=== PATIENT | female | born 1955 | race Caucasian/White ===

== ENCOUNTER 2016-11-01 12:27 | Emergency (ER) | payer OTHER ==
[2016-11-01 12:38] VITALS: RESP 16; TEMP 98.2
--- NOTE | 2016-11-01 15:09 | EDPHY ---
HPI/HX/ROS/PE/MDM Narrative: CHIEF COMPLAINT: Left sided abdominal pain. HISTORY OF PRESENT ILLNESS: The patient is a 61-year-old female presenting with left sided abdominal pain that started 5 days ago. The patient first developed skin sensitivity to the left breast, abdomen, and back. No noticeable rash. Two days ago the pain worsened in severity, most prominently the left abdomen. She has associated nausea, no emesis. Her pain is worse with movement and increases in the evenings. She has been taking Advil for pain with no relief. She notes decreased appetite. Denies fever, vomiting, diarrhea, urinary complaints, hematuria, shortness of breath or chest pain. REVIEW OF SYSTEMS: Aside from elements discussed in the HPI, a comprehensive 10-point review of systems was reviewed and is negative. PAST MEDICAL HISTORY: Paroxysmal tachycardia. SOCIAL HISTORY: Nonsmoker. Rare alcohol use. Recently relocated here. VITAL SIGNS: Reviewed by me GENERAL: Well-developed, well-nourished, resting comfortably in no respiratory distress. HEENT: Atraumatic. Eyes: No icterus, no injection. Mouth: moist mucous membranes. No erythema or lesions. Neck: supple with no adenopathy. LUNGS: Clear to auscultation bilaterally, no wheezes, rhonchi or rales. CARDIAC: Regular rate and rhythm, no rubs, murmurs or gallops. ABDOMEN: Soft, no tenderness to examination, no guarding or rebound, nondistended, bowel sounds normal. BACK: No CVA tenderness. EXTREMITIES: No trauma. No edema. Range of motion is normal throughout. NEURO: Alert and oriented, grossly nonfocal. SKIN: Warm and dry, grouped vesicles to left thoracic/ left flank region, dermatomal distribution about T9. PSYCHIATRIC: Normal mentation, no agitation. ED Course: Patient presents with left sided abdominal pain with radiation to the left flank. She is afebrile. Vitals are normal. On exam patient has grouped vesicles to the left thoracic region consistent with shingles. The patient was prescribed Acyclovir. Prednisone is not recommended due to onset of symptoms 5days ago. She was referred to a primary care physician for further followup. MDM: Differential diagnosis of the patient's flank pain and left abdominal pain was considered including but not limited to musculoskeletal causes, kidney stone, pyelonephritis, shingles, and intra-abdominal causes such as diverticulitis and constipation. General Time Seen by Provider: 11/01/16 15:01 Initial Vital Signs: Initial Vital Signs Temperature (C) 36.8 C 11/01/16 12:35 Heart Rate 71 11/01/16 12:35 Respiratory Rate 16 11/01/16 12:35 Blood Pressure 151/77 H 11/01/16 12:35 O2 Sat (%) 94 11/01/16 12:35 O2 Delivery Mode Room Air Allergies/Adverse Reactions: No Known Allergies Allergy (Unverified 11/01/16 12:39) Home Medications: Medication Instructions Recorded Co-Divan 11/01/16 Ondansetron Odt [Zofran Odt 4 mg 4 mg PO Q6 PRN #8 tab 11/01/16 (RX)] Verapamil 11/01/16 valACYclovir [Valtrex (*)] 1,000 mg PO TID #21 tab 11/01/16 Departure - Departure Disposition: Home, Routine, Self-Care Clinical Impression: Shingles, Abdominal pain Condition: Good Instructions: Shingles (ED) Additional Instructions: 1. Take Acyclovir as directed. 2. I recommend 600mg Ibuprofen every 6-8 hours as needed for pain. 3. Take Zofran as prescribed for nausea. 4. You have been referred to a primary care physician below. Please call to arrange follow as needed. Referrals: Martha Vo MD [Medical Doctor] - As per Instructions Prescriptions: Ondansetron Odt [Zofran Odt 4 mg (RX)] 4 mg PO Q6 PRN #8 tab PRN Reason: Nausea valACYclovir [Valtrex (*)] 1,000 mg PO TID #21 tab Report Scribed for: Chica Nicholson Report Scribed by: Mayuri Gonzales Date of Report: 11/01/16 Time of Report: 15:10
[2016-11-01 15:38] VITALS: BP 143/84; PULSE 78; O2SAT 97
== END 2016-11-01 15:34 | disposition home or self-care (01) ==
DX: R10.9 Unspecified abdominal pain (principal); B02.9 Zoster without complications